=== PATIENT | male | born 1955 | race Caucasian/White ===

== ENCOUNTER → 2016-12-26 | Outpatient (CLI) | payer OTHER ==
[~2016-12-26] MED LIST: BACT800T5 PO; BAYETES; GEMF600T PO; GLIP5 PO; GLIP5TAB8 PO; GLUCTES27 XX; IBUP200T2 PO; KETO60IN6 IM; LISI-360 PO; LISI10TA3 PO; LOPI600T PO; METF1000 PO; METF500 PO; METF500T PO; METH125I2 IM; MOTR200T PO; MULT1TAB85 PO; TAB-TAB PO
[2016-12-26 14:35] LABS: AUTOMATED NEUTROPHIL # 5.5 TH/MM3 (1.8-7.7); BASOPHIL % 0.5 % (0.0-2.0); EOSINOPHIL # 0.1 TH/MM3 (0-0.4); EOSINOPHIL % 0.9 % (0.0-4.0); HEMATOCRIT 41.7 % (39.0-51.0); HEMO FLAGS DIFF FINAL; LYMPH % 28.8 % (9.0-44.0); LYMPHOCYTE # 2.5 TH/MM3 (1.0-4.8); MEAN CORPUSCULAR HEMOGLOBIN 28.4 PG (27.0-34.0); MEAN CORPUSCULAR HGB CONC 33.8 % (32.0-36.0); MONO % 7.4 % (0.0-8.0); NEUT % 62.4 % (16.0-70.0); PLATELET COUNT 262 TH/MM3 (150-450); RED BLOOD COUNT 4.96 MIL/MM3 (4.50-5.90); RED CELL DISTRIBUTION WIDTH 14.1 % (11.6-17.2); WHITE BLOOD COUNT 8.8 TH/MM3 (4.0-11.0)
[2016-12-26 14:59] LABS: ALT (GPT) 22 U/L (12-78); ANION GAP 7 MEQ/L (5-15); AST (GOT) 9 U/L (15-37); BICARBONATE 26.8 MEQ/L (21.0-32.0); BLOOD UREA NITROGEN 14 MG/DL (7-18); CHLORIDE 101 MEQ/L (98-107); GLOMERULAR FILTRATION RATE 78 ML/MIN (>89); GLUCOSE,FASTING 167 MG/DL (74-99); POTASSIUM 4.5 MEQ/L (3.5-5.1); SODIUM (NA) 135 MEQ/L (136-145)
[2016-12-26 15:10] LABS: ALKALINE PHOSPHATASE 90 U/L (45-117); TOTAL BILIRUBIN ADULT 0.2 MG/DL (0.2-1.0)
[2016-12-26 16:53] LABS: HEMOGLOBIN A1b 2.7 %; HEMOGLOBIN Ao 79.9 %; HEMOGLOBIN P3 4.9 %
== END ==
LOC: CLAB 14:05
PROVIDERS: ATTEND Family Medicine
DX: E11.9 Type 2 diabetes mellitus without complications (principal); E78.5 Hyperlipidemia, unspecified; I10 Essential (primary) hypertension; Z72.0 Tobacco use
CPT/HCPCS: 36415; 80053; 83036; 84443; 85025

== ENCOUNTER → 2017-04-21 | Outpatient (CLI) | payer OTHER ==
[~2017-04-21] MED LIST changes: -GLIP5 PO; -GLUCTES27 XX; -KETO60IN6 IM; -LISI-360 PO; -LOPI600T PO; -METF500 PO; -METH125I2 IM; -MOTR200T PO; -TAB-TAB PO
[2017-04-21 16:42] LABS: HDL CHOLESTEROL 38.4 MG/DL (40.0-60.0)
== END ==
LOC: CLAB 15:54
PROVIDERS: ATTEND Family Medicine
DX: E78.5 Hyperlipidemia, unspecified (principal)
CPT/HCPCS: 36415; 80061

== ENCOUNTER → 2017-04-27 | Outpatient (CLI) | payer OTHER ==
[2017-04-27 16:22] LABS: HEMOGLOBIN A1b 2.8 %; HEMOGLOBIN Ao 79.4 %; HEMOGLOBIN LA1C 3.2 %; HEMOGLOBIN P3 4.8 %
== END ==
LOC: CLAB 15:01
PROVIDERS: ATTEND Family Medicine
DX: E11.9 Type 2 diabetes mellitus without complications (principal)
CPT/HCPCS: 36415; 83036

== ENCOUNTER 2018-11-11 02:20 | Observation (INO) ==
[2018-11-11 04:47] LABS: Baso % (Auto) 0.5 % (0.0-2.0); Eos # (Auto) 0.1 th/mm3 (0.0-0.4); Eos % (Auto) 0.9 % (0.0-4.0); Hematocrit 37.6 % (39.0-51.0); Hemoglobin 11.9 gm/dL (13.0-17.0); Lymph # (Auto) 2.1 th/mm3 (1.0-4.8); Mean Corpuscular HGB Conc 31.7 % (32.0-36.0); Mean Corpuscular Hemoglobin 25.3 pg (27.0-34.0); Mean Corpuscular Volume 79.8 fL (80.0-100.0); Mean Platelet Volume 7.8 fL (7.0-11.0); Mono # (Auto) 0.9 th/mm3 (0.0-0.9); Neut # (Auto) 6.9 th/mm3 (1.8-7.7); Neut % (Auto) 68.6 % (16.0-70.0); Platelet Count 367 th/mm3 (150-450); Red Cell Distribution Width 16.9 % (11.6-17.2); White Blood Count 10.1 th/mm3 (4.0-11.0)
[2018-11-11 04:53] LABS: Alanine Aminotransferase 26 U/L (12-78); Albumin 3.8 g/dL (3.4-5.0); Anion Gap 10 meq/L (5-15); Aspartate Aminotransferase 15 U/L (15-37); Blood Urea Nitrogen 9 mg/dL (7-18); Calcium 8.7 mg/dL (8.5-10.1); Carbon Dioxide 25.4 meq/L (21.0-32.0); Chloride 105 meq/L (98-107); Glomerular Filtration Rate Greater Than 89 mL/min (>89); Glucose,Random 192 mg/dL (74-106); Sodium 140 meq/L (136-145)
[2018-11-11 04:57] LABS: Alkaline Phosphatase 121 U/L (45-117); Total Protein 7.4 g/dL (6.4-8.2); Troponin I 0.03 ng/mL (0.02-0.05)
--- NOTE | 2018-11-11 05:17 | ED ---
HPI General Chief Complaint: Shortness of Breath/Dyspnea Stated Complaint: SOB Time Seen by Provider: 11/11/18 03:55 Source: patient Mode of arrival: EMS Limitations: no limitations History of Present Illness 62-year-old male came to the emergency room with sudden onset shortness of breath. Patient is homeless and says that the shortness of breath started about 5-6 hours back. He has been coughing as well. No fever or chills. Patient was tachycardic and tachypneic upon arrival. No previous history of PE or DVT. Patient was also complaining of some left-sided chest pain with no radiation. Currently the pain is gone. He describes this as a dull ache. No aggravating or relieving symptoms identified. Patient has history of diabetes and hypertension. He ran out of his blood pressure medication but has been taking his diabetes meds as per him. Patient recently became homeless. Related Data Home Medications Medication Instructions Recorded Confirmed glipizide 5 mg PO PRN 11/11/18 11/11/18 Previous Rx's Medication Instructions Recorded aspirin 81 mg PO DAILY #30 tab 11/14/18 carvedilol [Coreg] 3.125 mg PO BID #60 tab 11/14/18 furosemide 40 mg PO DAILY #30 tab 11/14/18 lisinopril 10 mg PO DAILY #30 tab 11/14/18 metformin 1,000 mg PO AC #30 tab 11/14/18 Allergies Allergy/AdvReac Type Severity Reaction Status Date / Time penicillin G Allergy Severe Anaphylaxis Verified 11/11/18 07:42 Review of Systems ROS: all other systems reviewed are negative FOR[facility]LY [facility] Medical History Medical History PNA (pneumonia) (Acute) Diabetes (Chronic) HTN (hypertension) (Chronic) Hyperlipidemia (Chronic) Social History Social History Substance History: Active Abuse Second Hand Smoke Exposure: Yes Smoking Status: Current every day smoker Tobacco Type: Cigarettes How Often Do You Have a Drink Containing Alcohol: Never Recent Travel in [facility] within the Last 8 Weeks: No Recent Out of Country Travel within the Last 8 Weeks: No Immunization History Tetanus Immunization: >5 Years Exam Narrative Exam Narrative: GENERAL: Awake, alert, moderate distress SKIN: Focused skin assessment warm/dry. HEAD: Atraumatic. Normocephalic. EYES: Pupils equal and round. No scleral icterus. No injection or drainage. ENT: No nasal bleeding or discharge. Mucous membranes pink and moist. NECK: Trachea midline. No JVD. CARDIOVASCULAR: Regular rate and rhythm. No murmur appreciated. RESPIRATORY: No accessory muscle use. Clear to auscultation. Breath sounds equal bilaterally. GASTROINTESTINAL: Abdomen soft, non-tender, nondistended. Hepatic and splenic margins not palpable. MUSCULOSKELETAL: No obvious deformities. No clubbing. No cyanosis. No edema. NEUROLOGICAL: Awake and alert. No obvious cranial nerve deficits. Motor grossly within normal limits. Normal speech. PSYCHIATRIC: Appropriate mood and affect; insight and judgment normal. Course Consultations Consultation #1: jeannette hospitalist agree to admit Initial Documented Vital Signs Temperature 98.1 F 11/11/18 02:27 Pulse Rate 110 H 11/11/18 02:27 Respiratory Rate 30 H 11/11/18 02:27 Blood Pressure 148/74 H 11/11/18 02:27 Pulse Oximetry 96 11/11/18 02:27 Last Documented Vital Signs Temperature 97.8 F 11/14/18 07:27 Pulse Rate 79 11/14/18 08:20 Respiratory Rate 16 11/14/18 08:20 Blood Pressure 102/61 11/14/18 07:27 Pulse Oximetry 98 11/14/18 07:27 Critical Care Time Critical Care Time: Yes Total Critical Care Time: 30 Attestation: Aggregate critical care time was 30 minutes. Time to perform other separately billable procedures was not included in the critical care time. My time did not include minutes spent treating any other patients simultaneously or on activities that did not directly contribute to the patient's treatment. The services I provided to this patient were to treat and/or prevent clinically significant deterioration that could result in: ACS, heparin bolus and drip I provided critical care services requiring my management, as noted below: Chart data review, documentation time, medication orders and management, vital sign assessments/reviewing monitor data, ordering and reviewing lab tests, ordering and interpreting/reviewing x-rays and diagnostic studies, care of the patient and discussion of the patient with the admitting physicians. Medical Decision Making MDM Narrative Medical decision making narrative: 5:15 AM blood test results are back and BNP is slightly elevated. Patient is moderately hyperglycemic. Rest of his blood test results show anemia but not significant enough requiring blood transfusion. Patient is not on any blood thinners. I have ordered 40 mg of IV Lasix. Chest x-ray looks to have some increased fluid markings. I would admit him primarily to rule out ACS. Awaiting for the hospitalist to call back. 7:38 AM the nurse just brought to me the second EKG which shows significant T wave inversion changes in the lateral leads as well as inferior leads. This is quite concerning given his chief complain. The repeat troponin is pending. However I have started him on heparin bolus and drip and would like to medically admit him at this point. Awaiting for the hospitalist call back. Medical Screen Exam Complete: Yes Emergency Medical Condition: Yes Lab Data Lab results reviewed: Yes I reviewed the patient's lab results. Result diagrams: 11/14/18 06:47 11/14/18 06:47 Lab Results 11/11/18 11/11/18 11/11/18 Range/Units 04:15 04:15 04:15 WBC 10.1 (4.0-11.0) th/mm3 RBC 4.70 (4.50-5.90) mil/mm3 Hgb 11.9 L (13.0-17.0) gm/dL Hct 37.6 L (39.0-51.0) % MCV 79.8 L (80.0-100.0) fL MCH 25.3 L (27.0-34.0) pg MCHC 31.7 L (32.0-36.0) % RDW 16.9 (11.6-17.2) % Plt Count 367 (150-450) th/mm3 MPV 7.8 (7.0-11.0) fL Neut % (Auto) 68.6 (16.0-70.0) % Lymph % (Auto) 21.0 (9.0-44.0) % [place] % (Auto) 9.0 H (0.0-8.0) % Eos % (Auto) 0.9 (0.0-4.0) % Baso % (Auto) 0.5 (0.0-2.0) % Neut # (Auto) 6.9 (1.8-7.7) th/mm3 Lymph # (Auto) 2.1 (1.0-4.8) th/mm3 [place] # (Auto) 0.9 (0.0-0.9) th/mm3 Eos # (Auto) 0.1 (0.0-0.4) th/mm3 Baso # (Auto) 0.0 (0.0-0.2) th/mm3 WBC Differential . Differential Comment Auto diff final PT (9.8-11.6) sec INR Ratio APTT (23.4-31.7) sec D-Dimer Quant (PE/DVT) 0.48 (0.00-0.50) mg/L FEU Sodium 140 (136-145) meq/L Potassium 4.0 (3.5-5.1) meq/L Chloride 105 (98-107) meq/L Carbon Dioxide 25.4 (21.0-32.0) meq/L Anion Gap 10 (5-15) meq/L BUN 9 (7-18) mg/dL Creatinine 0.78 (0.60-1.30) mg/dL Estimated GFR Greater than 89 (>89) mL/min POC Glucose (68-110) mg/dl Random Glucose 192 H (74-106) mg/dL Hemoglobin A1c (4.3-6.0) % Calcium 8.7 (8.5-10.1) mg/dL Magnesium (1.5-2.5) mg/dL Total Bilirubin 0.3 (0.2-1.0) mg/dL AST 15 (15-37) U/L ALT 26 (12-78) U/L Alkaline Phosphatase 121 H (45-117) U/L Total Creatine Kinase (39-308) U/L Troponin I 0.03 (0.02-0.05) ng/mL B-Natriuretic Peptide (0-100) pg/mL Total Protein 7.4 (6.4-8.2) g/dL Albumin 3.8 (3.4-5.0) g/dL Triglycerides (42-150) mg/dL Cholesterol (120-200) mg/dL LDL Cholesterol, Calc (0-99) mg/dL HDL Cholesterol (40.0-60.0) mg/dL Cholesterol/HDL Ratio Ratio TSH (0.358-3.740) uIU/mL 11/11/18 11/11/18 11/11/18 Range/Units 04:15 04:15 04:15 WBC (4.0-11.0) th/mm3 RBC (4.50-5.90) mil/mm3 Hgb (13.0-17.0) gm/dL Hct (39.0-51.0) % MCV (80.0-100.0) fL MCH (27.0-34.0) pg MCHC (32.0-36.0) % RDW (11.6-17.2) % Plt Count (150-450) th/mm3 MPV (7.0-11.0) fL Neut % (Auto) (16.0-70.0) % Lymph % (Auto) (9.0-44.0) % [place] % (Auto) (0.0-8.0) % Eos % (Auto) (0.0-4.0) % Baso % (Auto) (0.0-2.0) % Neut # (Auto) (1.8-7.7) th/mm3 Lymph # (Auto) (1.0-4.8) th/mm3 [place] # (Auto) (0.0-0.9) th/mm3 Eos # (Auto) (0.0-0.4) th/mm3 Baso # (Auto) (0.0-0.2) th/mm3 WBC Differential Differential Comment PT 10.7 (9.8-11.6) sec INR 1.1 Ratio APTT 28.2 (23.4-31.7) sec D-Dimer Quant (PE/DVT) (0.00-0.50) mg/L FEU Sodium (136-145) meq/L Potassium (3.5-5.1) meq/L Chloride (98-107) meq/L Carbon Dioxide (21.0-32.0) meq/L Anion Gap (5-15) meq/L BUN (7-18) mg/dL Creatinine (0.60-1.30) mg/dL Estimated GFR (>89) mL/min POC Glucose (68-110) mg/dl Random Glucose (74-106) mg/dL Hemoglobin A1c 8.0 H (4.3-6.0) % Calcium (8.5-10.1) mg/dL Magnesium (1.5-2.5) mg/dL Total Bilirubin (0.2-1.0) mg/dL AST (15-37) U/L ALT (12-78) U/L Alkaline Phosphatase (45-117) U/L Total Creatine Kinase (39-308) U/L Troponin I (0.02-0.05) ng/mL B-Natriuretic Peptide 218 H (0-100) pg/mL Total Protein (6.4-8.2) g/dL Albumin (3.4-5.0) g/dL Triglycerides (42-150) mg/dL Cholesterol (120-200) mg/dL LDL Cholesterol, Calc (0-99) mg/dL HDL Cholesterol (40.0-60.0) mg/dL Cholesterol/HDL Ratio Ratio TSH (0.358-3.740) uIU/mL 11/11/18 11/11/18 11/11/18 Range/Units 07:30 09:27 09:27 WBC (4.0-11.0) th/mm3 RBC (4.50-5.90) mil/mm3 Hgb (13.0-17.0) gm/dL Hct (39.0-51.0) % MCV (80.0-100.0) fL MCH (27.0-34.0) pg MCHC (32.0-36.0) % RDW (11.6-17.2) % Plt Count (150-450) th/mm3 MPV (7.0-11.0) fL Neut % (Auto) (16.0-70.0) % Lymph % (Auto) (9.0-44.0) % [place] % (Auto) (0.0-8.0) % Eos % (Auto) (0.0-4.0) % Baso % (Auto) (0.0-2.0) % Neut # (Auto) (1.8-7.7) th/mm3 Lymph # (Auto) (1.0-4.8) th/mm3 [place] # (Auto) (0.0-0.9) th/mm3 Eos # (Auto) (0.0-0.4) th/mm3 Baso # (Auto) (0.0-0.2) th/mm3 WBC Differential Differential Comment PT (9.8-11.6) sec INR Ratio APTT (23.4-31.7) sec D-Dimer Quant (PE/DVT) (0.00-0.50) mg/L FEU Sodium (136-145) meq/L Potassium (3.5-5.1) meq/L Chloride (98-107) meq/L Carbon Dioxide (21.0-32.0) meq/L Anion Gap (5-15) meq/L BUN (7-18) mg/dL Creatinine (0.60-1.30) mg/dL Estimated GFR (>89) mL/min POC Glucose (68-110) mg/dl Random Glucose (74-106) mg/dL Hemoglobin A1c (4.3-6.0) % Calcium (8.5-10.1) mg/dL Magnesium (1.5-2.5) mg/dL Total Bilirubin (0.2-1.0) mg/dL AST (15-37) U/L ALT (12-78) U/L Alkaline Phosphatase (45-117) U/L Total Creatine Kinase 76 72 (39-308) U/L Troponin I 0.02 0.02 (0.02-0.05) ng/mL B-Natriuretic Peptide (0-100) pg/mL Total Protein (6.4-8.2) g/dL Albumin (3.4-5.0) g/dL Triglycerides 59 (42-150) mg/dL Cholesterol 217 H (120-200) mg/dL LDL Cholesterol, Calc 161 H (0-99) mg/dL HDL Cholesterol 44.6 (40.0-60.0) mg/dL Cholesterol/HDL Ratio 4.86 Ratio TSH 0.963 (0.358-3.740) uIU/mL 11/11/18 11/11/18 11/11/18 Range/Units 12:24 13:25 17:10 WBC (4.0-11.0) th/mm3 RBC (4.50-5.90) mil/mm3 Hgb (13.0-17.0) gm/dL Hct (39.0-51.0) % MCV (80.0-100.0) fL MCH (27.0-34.0) pg MCHC (32.0-36.0) % RDW (11.6-17.2) % Plt Count (150-450) th/mm3 MPV (7.0-11.0) fL Neut % (Auto) (16.0-70.0) % Lymph % (Auto) (9.0-44.0) % [place] % (Auto) (0.0-8.0) % Eos % (Auto) (0.0-4.0) % Baso % (Auto) (0.0-2.0) % Neut # (Auto) (1.8-7.7) th/mm3 Lymph # (Auto) (1.0-4.8) th/mm3 [place] # (Auto) (0.0-0.9) th/mm3 Eos # (Auto) (0.0-0.4) th/mm3 Baso # (Auto) (0.0-0.2) th/mm3 WBC Differential Differential Comment PT (9.8-11.6) sec INR Ratio APTT 44.3 H D (23.4-31.7) sec D-Dimer Quant (PE/DVT) (0.00-0.50) mg/L FEU Sodium (136-145) meq/L Potassium (3.5-5.1) meq/L Chloride (98-107) meq/L Carbon Dioxide (21.0-32.0) meq/L Anion Gap (5-15) meq/L BUN (7-18) mg/dL Creatinine (0.60-1.30) mg/dL Estimated GFR (>89) mL/min POC Glucose 396 H 129 H (68-110) mg/dl Random Glucose (74-106) mg/dL Hemoglobin A1c (4.3-6.0) % Calcium (8.5-10.1) mg/dL Magnesium (1.5-2.5) mg/dL Total Bilirubin (0.2-1.0) mg/dL AST (15-37) U/L ALT (12-78) U/L Alkaline Phosphatase (45-117) U/L Total Creatine Kinase (39-308) U/L Troponin I (0.02-0.05) ng/mL B-Natriuretic Peptide (0-100) pg/mL Total Protein (6.4-8.2) g/dL Albumin (3.4-5.0) g/dL Triglycerides (42-150) mg/dL Cholesterol (120-200) mg/dL LDL Cholesterol, Calc (0-99) mg/dL HDL Cholesterol (40.0-60.0) mg/dL Cholesterol/HDL Ratio Ratio TSH (0.358-3.740) uIU/mL 11/11/18 11/11/18 11/12/18 Range/Units 20:10 23:42 02:05 WBC (4.0-11.0) th/mm3 RBC (4.50-5.90) mil/mm3 Hgb (13.0-17.0) gm/dL Hct (39.0-51.0) % MCV (80.0-100.0) fL MCH (27.0-34.0) pg MCHC (32.0-36.0) % RDW (11.6-17.2) % Plt Count (150-450) th/mm3 MPV (7.0-11.0) fL Neut % (Auto) (16.0-70.0) % Lymph % (Auto) (9.0-44.0) % [place] % (Auto) (0.0-8.0) % Eos % (Auto) (0.0-4.0) % Baso % (Auto) (0.0-2.0) % Neut # (Auto) (1.8-7.7) th/mm3 Lymph # (Auto) (1.0-4.8) th/mm3 [place] # (Auto) (0.0-0.9) th/mm3 Eos # (Auto) (0.0-0.4) th/mm3 Baso # (Auto) (0.0-0.2) th/mm3 WBC Differential Differential Comment PT (9.8-11.6) sec INR Ratio APTT 26.4 D 47.5 H D (23.4-31.7) sec D-Dimer Quant (PE/DVT) (0.00-0.50) mg/L FEU Sodium (136-145) meq/L Potassium (3.5-5.1) meq/L Chloride (98-107) meq/L Carbon Dioxide (21.0-32.0) meq/L Anion Gap (5-15) meq/L BUN (7-18) mg/dL Creatinine (0.60-1.30) mg/dL Estimated GFR (>89) mL/min POC Glucose 234 H (68-110) mg/dl Random Glucose (74-106) mg/dL Hemoglobin A1c (4.3-6.0) % Calcium (8.5-10.1) mg/dL Magnesium (1.5-2.5) mg/dL Total Bilirubin (0.2-1.0) mg/dL AST (15-37) U/L ALT (12-78) U/L Alkaline Phosphatase (45-117) U/L Total Creatine Kinase (39-308) U/L Troponin I (0.02-0.05) ng/mL B-Natriuretic Peptide (0-100) pg/mL Total Protein (6.4-8.2) g/dL Albumin (3.4-5.0) g/dL Triglycerides (42-150) mg/dL Cholesterol (120-200) mg/dL LDL Cholesterol, Calc (0-99) mg/dL HDL Cholesterol (40.0-60.0) mg/dL Cholesterol/HDL Ratio Ratio TSH (0.358-3.740) uIU/mL 11/12/18 11/12/18 11/12/18 Range/Units 06:50 08:35 08:50 WBC 10.3 (4.0-11.0) th/mm3 RBC 4.00 L (4.50-5.90) mil/mm3 Hgb 10.4 L (13.0-17.0) gm/dL Hct 31.1 L (39.0-51.0) % MCV 77.7 L (80.0-100.0) fL MCH 25.9 L (27.0-34.0) pg MCHC 33.4 (32.0-36.0) % RDW 16.6 (11.6-17.2) % Plt Count 320 (150-450) th/mm3 MPV 7.9 (7.0-11.0) fL Neut % (Auto) (16.0-70.0) % Lymph % (Auto) (9.0-44.0) % [place] % (Auto) (0.0-8.0) % Eos % (Auto) (0.0-4.0) % Baso % (Auto) (0.0-2.0) % Neut # (Auto) (1.8-7.7) th/mm3 Lymph # (Auto) (1.0-4.8) th/mm3 [place] # (Auto) (0.0-0.9) th/mm3 Eos # (Auto) (0.0-0.4) th/mm3 Baso # (Auto) (0.0-0.2) th/mm3 WBC Differential Differential Comment PT (9.8-11.6) sec INR Ratio APTT 47.2 H (23.4-31.7) sec D-Dimer Quant (PE/DVT) (0.00-0.50) mg/L FEU Sodium (136-145) meq/L Potassium (3.5-5.1) meq/L Chloride (98-107) meq/L Carbon Dioxide (21.0-32.0) meq/L Anion Gap (5-15) meq/L BUN (7-18) mg/dL Creatinine (0.60-1.30) mg/dL Estimated GFR (>89) mL/min POC Glucose 167 H (68-110) mg/dl Random Glucose (74-106) mg/dL Hemoglobin A1c (4.3-6.0) % Calcium (8.5-10.1) mg/dL Magnesium (1.5-2.5) mg/dL Total Bilirubin (0.2-1.0) mg/dL AST (15-37) U/L ALT (12-78) U/L Alkaline Phosphatase (45-117) U/L Total Creatine Kinase (39-308) U/L Troponin I (0.02-0.05) ng/mL B-Natriuretic Peptide (0-100) pg/mL Total Protein (6.4-8.2) g/dL Albumin (3.4-5.0) g/dL Triglycerides (42-150) mg/dL Cholesterol (120-200) mg/dL LDL Cholesterol, Calc (0-99) mg/dL HDL Cholesterol (40.0-60.0) mg/dL Cholesterol/HDL Ratio Ratio TSH (0.358-3.740) uIU/mL 11/12/18 11/12/18 11/12/18 Range/Units 13:24 17:38 21:24 WBC (4.0-11.0) th/mm3 RBC (4.50-5.90) mil/mm3 Hgb (13.0-17.0) gm/dL Hct (39.0-51.0) % MCV (80.0-100.0) fL MCH (27.0-34.0) pg MCHC (32.0-36.0) % RDW (11.6-17.2) % Plt Count (150-450) th/mm3 MPV (7.0-11.0) fL Neut % (Auto) (16.0-70.0) % Lymph % (Auto) (9.0-44.0) % [place] % (Auto) (0.0-8.0) % Eos % (Auto) (0.0-4.0) % Baso % (Auto) (0.0-2.0) % Neut # (Auto) (1.8-7.7) th/mm3 Lymph # (Auto) (1.0-4.8) th/mm3 [place] # (Auto) (0.0-0.9) th/mm3 Eos # (Auto) (0.0-0.4) th/mm3 Baso # (Auto) (0.0-0.2) th/mm3 WBC Differential Differential Comment PT (9.8-11.6) sec INR Ratio APTT (23.4-31.7) sec D-Dimer Quant (PE/DVT) (0.00-0.50) mg/L FEU Sodium (136-145) meq/L Potassium (3.5-5.1) meq/L Chloride (98-107) meq/L Carbon Dioxide (21.0-32.0) meq/L Anion Gap (5-15) meq/L BUN (7-18) mg/dL Creatinine (0.60-1.30) mg/dL Estimated GFR (>89) mL/min POC Glucose 184 H 170 H 159 H (68-110) mg/dl Random Glucose (74-106) mg/dL Hemoglobin A1c (4.3-6.0) % Calcium (8.5-10.1) mg/dL Magnesium (1.5-2.5) mg/dL Total Bilirubin (0.2-1.0) mg/dL AST (15-37) U/L ALT (12-78) U/L Alkaline Phosphatase (45-117) U/L Total Creatine Kinase (39-308) U/L Troponin I (0.02-0.05) ng/mL B-Natriuretic Peptide (0-100) pg/mL Total Protein (6.4-8.2) g/dL Albumin (3.4-5.0) g/dL Triglycerides (42-150) mg/dL Cholesterol (120-200) mg/dL LDL Cholesterol, Calc (0-99) mg/dL HDL Cholesterol (40.0-60.0) mg/dL Cholesterol/HDL Ratio Ratio TSH (0.358-3.740) uIU/mL 11/13/18 11/13/18 11/13/18 Range/Units 03:06 08:36 13:05 WBC 6.6 (4.0-11.0) th/mm3 RBC 4.36 L (4.50-5.90) mil/mm3 Hgb 11.2 L (13.0-17.0) gm/dL Hct 34.0 L (39.0-51.0) % MCV 77.9 L (80.0-100.0) fL MCH 25.6 L (27.0-34.0) pg MCHC 32.9 (32.0-36.0) % RDW 16.6 (11.6-17.2) % Plt Count 340 (150-450) th/mm3 MPV 7.6 (7.0-11.0) fL Neut % (Auto) (16.0-70.0) % Lymph % (Auto) (9.0-44.0) % [place] % (Auto) (0.0-8.0) % Eos % (Auto) (0.0-4.0) % Baso % (Auto) (0.0-2.0) % Neut # (Auto) (1.8-7.7) th/mm3 Lymph # (Auto) (1.0-4.8) th/mm3 [place] # (Auto) (0.0-0.9) th/mm3 Eos # (Auto) (0.0-0.4) th/mm3 Baso # (Auto) (0.0-0.2) th/mm3 WBC Differential Differential Comment PT (9.8-11.6) sec INR Ratio APTT (23.4-31.7) sec D-Dimer Quant (PE/DVT) (0.00-0.50) mg/L FEU Sodium (136-145) meq/L Potassium (3.5-5.1) meq/L Chloride (98-107) meq/L Carbon Dioxide (21.0-32.0) meq/L Anion Gap (5-15) meq/L BUN (7-18) mg/dL Creatinine (0.60-1.30) mg/dL Estimated GFR (>89) mL/min POC Glucose 192 H 300 H (68-110) mg/dl Random Glucose (74-106) mg/dL Hemoglobin A1c (4.3-6.0) % Calcium (8.5-10.1) mg/dL Magnesium (1.5-2.5) mg/dL Total Bilirubin (0.2-1.0) mg/dL AST (15-37) U/L ALT (12-78) U/L Alkaline Phosphatase (45-117) U/L Total Creatine Kinase (39-308) U/L Troponin I (0.02-0.05) ng/mL B-Natriuretic Peptide (0-100) pg/mL Total Protein (6.4-8.2) g/dL Albumin (3.4-5.0) g/dL Triglycerides (42-150) mg/dL Cholesterol (120-200) mg/dL LDL Cholesterol, Calc (0-99) mg/dL HDL Cholesterol (40.0-60.0) mg/dL Cholesterol/HDL Ratio Ratio TSH (0.358-3.740) uIU/mL 11/13/18 11/13/18 11/14/18 Range/Units 17:10 20:55 06:47 WBC 7.0 (4.0-11.0) th/mm3 RBC 4.50 (4.50-5.90) mil/mm3 Hgb 11.4 L (13.0-17.0) gm/dL Hct 35.1 L (39.0-51.0) % MCV 78.0 L (80.0-100.0) fL MCH 25.4 L (27.0-34.0) pg MCHC 32.6 (32.0-36.0) % RDW 16.4 (11.6-17.2) % Plt Count 341 (150-450) th/mm3 MPV 7.5 (7.0-11.0) fL Neut % (Auto) (16.0-70.0) % Lymph % (Auto) (9.0-44.0) % [place] % (Auto) (0.0-8.0) % Eos % (Auto) (0.0-4.0) % Baso % (Auto) (0.0-2.0) % Neut # (Auto) (1.8-7.7) th/mm3 Lymph # (Auto) (1.0-4.8) th/mm3 [place] # (Auto) (0.0-0.9) th/mm3 Eos # (Auto) (0.0-0.4) th/mm3 Baso # (Auto) (0.0-0.2) th/mm3 WBC Differential Differential Comment PT (9.8-11.6) sec INR Ratio APTT (23.4-31.7) sec D-Dimer Quant (PE/DVT) (0.00-0.50) mg/L FEU Sodium (136-145) meq/L Potassium (3.5-5.1) meq/L Chloride (98-107) meq/L Carbon Dioxide (21.0-32.0) meq/L Anion Gap (5-15) meq/L BUN (7-18) mg/dL Creatinine (0.60-1.30) mg/dL Estimated GFR (>89) mL/min POC Glucose 162 H 256 H (68-110) mg/dl Random Glucose (74-106) mg/dL Hemoglobin A1c (4.3-6.0) % Calcium (8.5-10.1) mg/dL Magnesium (1.5-2.5) mg/dL Total Bilirubin (0.2-1.0) mg/dL AST (15-37) U/L ALT (12-78) U/L Alkaline Phosphatase (45-117) U/L Total Creatine Kinase (39-308) U/L Troponin I (0.02-0.05) ng/mL B-Natriuretic Peptide (0-100) pg/mL Total Protein (6.4-8.2) g/dL Albumin (3.4-5.0) g/dL Triglycerides (42-150) mg/dL Cholesterol (120-200) mg/dL LDL Cholesterol, Calc (0-99) mg/dL HDL Cholesterol (40.0-60.0) mg/dL Cholesterol/HDL Ratio Ratio TSH (0.358-3.740) uIU/mL 11/14/18 11/14/18 Range/Units 06:47 09:03 WBC (4.0-11.0) th/mm3 RBC (4.50-5.90) mil/mm3 Hgb (13.0-17.0) gm/dL Hct (39.0-51.0) % MCV (80.0-100.0) fL MCH (27.0-34.0) pg MCHC (32.0-36.0) % RDW (11.6-17.2) % Plt Count (150-450) th/mm3 MPV (7.0-11.0) fL Neut % (Auto) (16.0-70.0) % Lymph % (Auto) (9.0-44.0) % [place] % (Auto) (0.0-8.0) % Eos % (Auto) (0.0-4.0) % Baso % (Auto) (0.0-2.0) % Neut # (Auto) (1.8-7.7) th/mm3 Lymph # (Auto) (1.0-4.8) th/mm3 [place] # (Auto) (0.0-0.9) th/mm3 Eos # (Auto) (0.0-0.4) th/mm3 Baso # (Auto) (0.0-0.2) th/mm3 WBC Differential Differential Comment PT (9.8-11.6) sec INR Ratio APTT (23.4-31.7) sec D-Dimer Quant (PE/DVT) (0.00-0.50) mg/L FEU Sodium 135 L (136-145) meq/L Potassium 4.2 (3.5-5.1) meq/L Chloride 101 (98-107) meq/L Carbon Dioxide 28.5 (21.0-32.0) meq/L Anion Gap 6 (5-15) meq/L BUN 23 H (7-18) mg/dL Creatinine 0.88 (0.60-1.30) mg/dL Estimated GFR 88 L (>89) mL/min POC Glucose 158 H (68-110) mg/dl Random Glucose 139 H (74-106) mg/dL Hemoglobin A1c (4.3-6.0) % Calcium 8.7 (8.5-10.1) mg/dL Magnesium 2.3 (1.5-2.5) mg/dL Total Bilirubin (0.2-1.0) mg/dL AST (15-37) U/L ALT (12-78) U/L Alkaline Phosphatase (45-117) U/L Total Creatine Kinase (39-308) U/L Troponin I (0.02-0.05) ng/mL B-Natriuretic Peptide (0-100) pg/mL Total Protein (6.4-8.2) g/dL Albumin (3.4-5.0) g/dL Triglycerides (42-150) mg/dL Cholesterol (120-200) mg/dL LDL Cholesterol, Calc (0-99) mg/dL HDL Cholesterol (40.0-60.0) mg/dL Cholesterol/HDL Ratio Ratio TSH (0.358-3.740) uIU/mL Imaging Data Attestation: I personally reviewed and interpreted this imaging study as follows : Radiologist's impression: Chest X-Ray 11/11/18 03:58 CONCLUSION: No acute cardiopulmonary disease. Myocardial Perfusion Scan Nuc Med 11/13/18 00:00 CONCLUSION: 1. 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 ECG Data Attestation: I personally reviewed and interpreted this ECG as follows: Interpretation: Twelve-lead EKG was reviewed by me. Normal sinus rhythm, PVCs, right bundle branch block, normal axis, tachycardia. Heart rate of 106 bpm. Discharge Plan Discharge Disposition Patient Disposition: ED Admit(ED Internal Use Only) Discharge Condition Condition: Stable Discharge Order Discharge Orders: Discharge Order (Routine); Ordered 11/14/18 Ordered By: Edin Tolentino ED Use Only Admit Order (Routine); Ordered 11/11/18 Ordered By: Juan Holman Discharge Details Anticipated Discharge Date: 11/14/18 Discharge Comment: OK to discharge once patient has ability to fill scripts Diagnosis: Chest pain Physicians Team ED Provider: Juan Holman Primary Care Provider: Primary Care Azalia Hector Attending Provider: Edin Tolentino Other Providers: Bennie Nicholson Status ED Status: Left Department Discharge Information Discharge Date/Time: 11/11/18 09:09
--- NOTE | 2018-11-11 05:39 | XR ---
EXAM DATE: 11/11/2018 4:50 AM EST AGE/SEX: 62 years / Male INDICATIONS: Shortness of breath with chest pain. CLINICAL DATA: This is the patient's initial encounter. Patient reports that signs and symptoms have been present for 1 day and indicates a pain score of 6/10. MEDICAL/SURGICAL HISTORY: Hiatal hernia. Diabetes mellitus type II. Appendectomy. COMPARISON: None. FINDINGS: A single AP view of the chest demonstrates the lungs to be symmetrically aerated without evidence of mass, infiltrate or effusion. The cardiomediastinal contours are unremarkable. Osseous structures a re intact. CONCLUSION: No acute cardiopulmonary disease. Electronically signed by: Edin Rg MD Board Certified Radiologist 11/11/2018 5:37 AM EST
[2018-11-11] MEDS ORDERED: Heparin 10,000 UNITS/10 ML Vial (for IV use) IV.PUSH STA (07:30)
[2018-11-11] MEDS: Heparin Drip 25,000 UNIT/250 ML BAG IV.CONT PRN (07:45)
[2018-11-11] MEDS ORDERED: Acetaminophen 325 MG Tablet PO PRN (08:00)
[2018-11-11] MEDS ORDERED: Bisacodyl 10 MG Supp RECTAL PRN (08:00)
[2018-11-11 08:12] LABS: Activated Partial Thrombo Time 28.2 sec (23.4-31.7); INR 1.1 Ratio; Prothrombin Time 10.7 sec (9.8-11.6)
[2018-11-11 08:14] LABS: Troponin I 0.02 ng/mL (0.02-0.05)
--- NOTE | 2018-11-11 09:19 | P.HPIM ---
History of Present Illness Primary Care Physician: No Primary Care Physician Chief Complaint: shortness of breath History of Present Illness: 62 yo M with h/o DM type 2, HTN, Hyperlipidemia, who presented to the ER with shortness of breath. Patient is homeless currently , [place] when she started experiencing sudden onset shortness of breath. He tried to lay down but it got worse on laying down , and he would cough a lot,and had lower retrosternal pressure which was non radiating about 7/10. No associated diaphoresis or palpitations. Had some wheezing as well on laying down. He sat up again and breathing somewhat improved , but he still felt like he could not catch his breath. He had an albuterol inhaler which he had got from his friend sometime ago, he inhaled 4 times but it did not help. Patient is not know to have COPD.The symptoms lasted about 20 minutes. Since he was not improving, he called EMS. On arrival EMS put patient on Oxygen, and started breathing treatments, and was brought to ER. On arrival to ER, BP 148/74, HR 110/min, was reported to be tachypneic w RR 30, SATS 96%. Patient received Lasix 40mg, ASA 162mg. Patient reports improvement in shortness of breath after treatment in ER. Troponin negative --0.03,0.02. Initial ECG 02:25am-sinus tach 106, RBBB,occasional PACs, subsequent ECG 07: 23am--NSR 93/min,RBBB w twi inferolateral leads. Patient started on heparin drip at 7:30amdue to changes noted in his second ECG. When I saw patient he reported his shortness of breath/wheezing and the lower chest pressure had significantly improved. ROS--patient notice leg swelling 2 days prior to admission, initially at level of ankle but increased to about mid leg. He has h/o exertional shortness of breath when going upstairs or an incline for the last 1-2 years. Occasional exertional chest pain. Numbness in both his feet. The rest of ROS is negative except as stated above. Smokes 1ppd for more than 40 years, occasionally drinks alcohol. Occasionally uses marijuana, last use probably 4 months ago. Review of Systems Review of Systems: all other systems reviewed are negative [facility] Medical History Medical History PNA (pneumonia) (Acute) Diabetes (Chronic) HTN (hypertension) (Chronic) Hyperlipidemia (Chronic) Social History Social History Substance History: Active Abuse Second Hand Smoke Exposure: Yes Smoking Status: Current every day smoker Tobacco Type: Cigarettes How Often Do You Have a Drink Containing Alcohol: Never Recent Travel in [facility] within the Last 8 Weeks: No Recent Out of Country Travel within the Last 8 Weeks: No Immunization History Tetanus Immunization: >5 Years Medications and Allergies Allergies Allergy/AdvReac Type Severity Reaction Status Date / Time penicillin G Allergy Severe Anaphylaxis Verified 11/11/18 07:42 Home Medications Medication Instructions Recorded Confirmed Type aspirin 81 mg PO DAILY 11/11/18 11/11/18 History glipizide 5 mg PO PRN 11/11/18 11/11/18 History lisinopril 10 mg PO DAILY 11/11/18 11/11/18 History metformin 1,000 mg PO AC 11/11/18 11/11/18 History metformin 1,500 mg PO HS 11/11/18 11/11/18 History Active Medications: Active Medications Acetaminophen (Tylenol) 650 mg PO Q4H PRN PRN Reason: Temp > 100.4 Al Hydroxide/Mg Hydroxide (Milk Of Magnesia Liq) 30 ml PO Q12H PRN PRN Reason: Mild Constipation Bisacodyl (Dulcolax Supp) 10 mg RECTAL DAILY PRN PRN Reason: SEVERE CONSITIPATION Heparin Sodium/Dextrose (Heparin/D5w 25,000 U/250 Ml) 25,000 unit in 250 mls @ 0 mls/hr IV.CONT TITRATE PRN; Protocol PRN Reason: Per Protocol Last Admin: 11/11/18 07:45 Dose: 1,200 units/hr, 12 mls/hr Lactulose (Lactulose Liq) 30 ml PO DAILY PRN PRN Reason: SEVERE CONSITIPATION Ondansetron HCl (Zofran Inj) 4 mg IV.PUSH Q6H PRN PRN Reason: NAUSEA OR VOMITING Senna/Docusate Sodium (Gris-Colace) 1 tab PO BID CHUY Sennosides (Senokot) 17.2 mg PO Q12H PRN PRN Reason: Moderate Constipation Sodium Chloride (Ns Flush) 2 ml IV.FLUSH UNSCH PRN PRN Reason: FLUSH AFTER USING IV ACCESS Sodium Chloride (Ns Flush) 2 ml IV.FLUSH BID CHUY Sodium Chloride (Ns Flush) 2 ml IV.FLUSH PRN PRN PRN Reason: FLUSH AFTER USING IV ACCESS Sodium Chloride (Ns Flush) 2 ml IV.FLUSH BID CHUY Sodium Chloride (Ns Flush) 2 ml IV.FLUSH PRN PRN PRN Reason: FLUSH AFTER USING IV ACCESS Physical Exam Vital signs: Last Vital Signs Temp 98.1 F 11/11/18 02:27 Pulse 97 H 11/11/18 08:28 Resp 18 11/11/18 08:28 BP 143/74 H 11/11/18 08:28 Pulse Ox 99 11/11/18 08:28 Intake & Output 11/09/18 11/10/18 11/11/18 11/12/18 06:59 06:59 06:59 06:59 Weight 68.039 kg Narrative: GENERAL: This is a well-nourished, well-developed patient, in no apparent distress. HEENT:not pale,anicteric,acyanotic, nasal canula in situ. NECK:JVD+ CARDIOVASCULAR: Regular rate and rhythm without murmurs, gallops, or rubs. RESPIRATORY: Clear to auscultation. Breath sounds equal bilaterally. No wheezes , rales, or rhonchi. GASTROINTESTINAL: Abdomen soft, non-tender, nondistended. Normal active bowel sounds MUSCULOSKELETAL: Extremities without clubbing, cyanosis. 2+ pedal edema to mid legs. NEURO: Alert & Oriented x4 to person, place, time, situation. Moves all ext x4 Results Labs CBC & Chem 7: 11/11/18 04:15 11/11/18 04:15 Imaging Impressions Chest X-Ray 11/11/18 03:58 CONCLUSION: No acute cardiopulmonary disease. Caprini VTE Risk Assessment Caprini VTE Risk Assessment: No/Low Risk (score <= 1) Caprini Risk Assessment Model: Point Value = 1 Point Value = 2 Point Value = 3 Point Value = 5 Age 41-60 Minor surgery BMI > 25 kg/m2 Swollen legs Varicose veins or History of unexplained or recurrent spontaneous Oral contraceptives or hormone replacement Sepsis (< 1 month) Serious lung disease, including pneumonia (< 1 month) Abnormal pulmonary function Acute myocardial infarction Congestive heart failure (< 1 month) History of inflammatory bowel disease Medical patient at bed rest Age 61-74 Arthroscopic surgery Major open surgery (> 45 min) Laparoscopic surgery (> 45 min) Malignancy Confined to bed (> 72 hours) Immobilizing plaster cast Central venous access Age >= 75 History of VTE Family history of VTE Factor V Leiden Prothrombin [id number] Lupus anticoagulant Anticardiolipin antibodies Elevated serum homocysteine Heparin-induced thrombocytopenia Other congenital or acquired thrombophilia Stroke (< 1 month) Elective arthroplasty Hip, pelvis, or leg fracture Acute spinal cord injury (< 1 month) Prophylaxis Regimen: Total Risk Factor Score Risk Level Prophylaxis Regimen 0-1 Low Early ambulation 2 Moderate Order ONE of the following: *Sequential Compression Device (SCD) *Heparin 5000 units SQ BID 3-4 Higher Order ONE of the following medications: *Heparin 5000 units SQ TID *Enoxaparin/Lovenox 40 mg SQ daily (WT < 150 kg, CrCl > 30 mL/min) *Enoxaparin/Lovenox 30 mg SQ daily (WT < 150 kg, CrCl > 10-29 mL/min) *Enoxaparin/Lovenox 30 mg SQ BID (WT < 150 kg, CrCl > 30 mL/min) AND/OR *Sequential Compression Device (SCD) 5 or more Highest Order ONE of the following medications: *Heparin 5000 units SQ TID (Preferred with Epidurals) *Enoxaparin/Lovenox 40 mg SQ daily (WT < 150 kg, CrCl > 30 mL/min) *Enoxaparin/Lovenox 30 mg SQ daily (WT < 150 kg, CrCl > 10-29 mL/min) *Enoxaparin/Lovenox 30 mg SQ BID (WT < 150 kg, CrCl > 30 mL/min) AND *Sequential Compression Device (SCD) Assessment and Plan Plan 62 yo m with h/o DM type 2 HTN, Hyperlipidemia presenting with shortness of breath. 1.Shortness of breath, acute onset. Likely new onset Congestive heart failure, non specified type presently. Patient had leg swelling for 2 days prior to arrival, BNP is elevated, clinical symptoms and signs in keeping with volume overload. Obtain 2 D ECHO, check TSH Start on Lasix IV 20mg bid. Strict I/O chart, 2gm sodium diet. 2.Chest pain-subsided. may be secondary to CHF. troponin negative x2, ECG noted to be in RBBB, with twi in inferolateral leads. unclear if this is old or new. check d-dimer. continue heparin drip for now. need to r/o ischemia with nuclear stress test once patient is euvolemic. counseled on smoking cessation. 3. DM type 2 Patient on Metformin 1000 mg in morning and 1500mg pm, Glipizide 5-10mg prn. says his blood glucose is in 130-170 range at home. glucose 190's here, check A1C. Keep on SSI 4.HTN-uncontrolled, systolic BP in the 140's. resume Lisinopril. keep 2gm sodium diet. 5. Hyperlipidemia/hypertriglyceridemia-patient on Gemfibrozil 600mg bid, continue same, check lipid profile. DVT ppx-low risk.
[2018-11-11 10:09] LABS: Troponin I 0.02 ng/mL (0.02-0.05)
[2018-11-11] MEDS: Senna/Docusate Sodium 8.6/50 MG Tablet PO SCH ×2 (10:34→21:30)
[2018-11-11] MEDS: Lisinopril 10 MG Tablet PO SCH (10:34)
[2018-11-11 10:56] LABS: Chol/HDL Ratio 4.86 Ratio; HDL Cholesterol 44.6 mg/dL (40.0-60.0); Thyroid Stimulating Hormone 0.963 uIU/mL (0.358-3.740)
[2018-11-11] MEDS ORDERED: Insulin NovoLOG Aspart Correctional Sugar Inj SQ SCH ×2 (12:00→17:00)
[2018-11-11] MEDS ORDERED: Dextrose 50% in Water 50 ML Vial IV.PUSH PRN (13:53)
[2018-11-11] MEDS: Insulin NovoLOG Aspart Correctional Sugar Inj SQ SCH ×3 (14:14→23:50)
--- NOTE | 2018-11-11 15:02 | ECG ---
Date Performed: 11/11/2018 Time Performed: 02:25:48 PTAGE: 62 years EKG: SINUS TACHYCARDIA WITH OCCASIONAL SUPRAVENTRICULAR PREMATURE COMPLEXES POSSIBLE LEFT ATRIAL ENLARGEMENT BORDERLINE LEFT AXIS DEVIATION RIGHT BUNDLE BRANCH BLOCK CANNOT EXCLUDE INFERIOR WALL AK OF UNDETERMINED AGE ABNORMAL ECG NO PREVIOUS TRACING DOCTOR: Nik Parra Interpretating Date/Time 11/11/2018 14:58:51
--- NOTE | 2018-11-11 15:02 | ECG ---
Date Performed: 11/11/2018 Time Performed: 07:23:10 PTAGE: 62 years EKG: Sinus rhythm RIGHT BUNDLE BRANCH BLOCK CANNOT EXCLUDE INFERIOR WALL PR OF UNDETERMINED AGE NONSPECIFIC T WAVE ANOOP NGE Compared to previous tracing, T wave changes are more prominent anterolaterally. Clinical correla tion is recommended ABNORMAL ECG PREVIOUS TRACING : 11/11/2018 02.25 DOCTOR: Nik Parra Interpretating Date/Time 11/11/2018 14:59:45
--- NOTE | 2018-11-11 15:03 | ECG ---
Date Performed: 11/11/2018 Time Performed: 10:27:30 PTAGE: 62 years EKG: Sinus rhythm RIGHT BUNDLE BRANCH BLOCK CANNOT EXCLUDE INFERIOR WALL IN OF UNDETERMINED AGE NONSPECIFIC T WAVE ANOOP NGE INFEROLATERALLY Since the previous tracing, no significant change noted ABNORMAL ECG PREVIOUS TRACING : 11/11/2018 07.23 DOCTOR: Nik Parra Interpretating Date/Time 11/11/2018 15:00:12
[2018-11-12] MEDS: Heparin Drip 25,000 UNIT/250 ML BAG IV.CONT PRN (01:55)
[2018-11-12 08:14] LABS: Hematocrit 31.1 % (39.0-51.0); Hemoglobin 10.4 gm/dL (13.0-17.0); Mean Corpuscular HGB Conc 33.4 % (32.0-36.0); Mean Corpuscular Hemoglobin 25.9 pg (27.0-34.0); Mean Corpuscular Volume 77.7 fL (80.0-100.0); Mean Platelet Volume 7.9 fL (7.0-11.0); Platelet Count 320 th/mm3 (150-450); Red Cell Distribution Width 16.6 % (11.6-17.2); White Blood Count 10.3 th/mm3 (4.0-11.0)
[2018-11-12] MEDS: Lisinopril 10 MG Tablet PO SCH (08:52)
[2018-11-12] MEDS: Senna/Docusate Sodium 8.6/50 MG Tablet PO SCH ×2 (08:52→21:27)
[2018-11-12] MEDS: Insulin NovoLOG Aspart Correctional Sugar Inj SQ SCH ×4 (09:36→21:52)
--- NOTE | 2018-11-12 09:55 | ECHRPT ---
Indication: SHORTNESS OF BREATH CONCLUSIONS Normal left ventricular size. Mild concentric left ventricular hypertrophy. The left ventricular systolic function is severely reduced with an estimated ejection fraction in th e range of 30-35%. There is diffuse global hypokinesis with distinct regional wall motion abnormalities. [id number]-[id number] mitral valve regurgitation. There is trace tricuspid valve regurgitation. No significant pericardial effusion. BP: / HR: Rhythm: Sinus MEASUREMENTS (Male / Female) Normal Values Technical Quality:Fair 2D ECHO LV Diastolic Diameter PLAX 5.3 cm 4.2 - 5.9 / 3.9 - 5.3 cm LV Systolic Diameter PLAX 4.6 cm IVS Diastolic Thickness 1.3 cm 0.6 - 1.0 / 0.6 - 0.9 cm LVPW Diastolic Thickness 1.4 cm 0.6 - 1.0 / 0.6 - 0.9 cm LV Relative Wall Thickness 0.5 RV Internal Dim ED PLAX 2.4 cm LVOT Diameter 2.0 cm Aortic Root Diameter 2.7 cm LA Systolic Diameter LX 3.7 cm 3.0 - 4.0 / 2.7 - 3.8 cm M-MODE AV Cusp Separation MM 2.1 cm DOPPLER AV Peak Velocity 161.0 cm/s AV Peak Gradient 10.4 mmHg AV Mean Gradient 6.0 mmHg AV Velocity Time Integral 25.6 cm LVOT Peak Velocity 95.5 cm/s LVOT Peak Gradient 3.6 mmHg LVOT Velocity Time Integral 13.2 cm AV Area Cont Eq vti 1.6 cm AV Area Cont Eq pk 1.9 cm Mitral E Point Velocity 94.8 cm/s Mitral A Point Velocity 126.0 cm/s Mitral E to A Ratio 0.8 LV E' Lateral Velocity 7.0 cm/s Mitral E to LV E' Lateral Ratio 13.5 LV E' Septal Velocity 7.0 cm/s Mitral E to LV E' Septal Ratio 13.5 PV Peak Velocity 77.5 cm/s PV Peak Gradient 2.4 mmHg FINDINGS LEFT VENTRICLE Normal left ventricular size. Mild concentric left ventricular hypertrophy. The left ventricular systolic function is severely reduced with an estimated ejection fraction in th e range of 30-35%. There is diffuse global hypokinesis with distinct regional wall motion abnormalities. Doppler parameters are consistent with impaired left ventricular relaxtion (grade 1 diastolic dysfun ction). RIGHT VENTRICLE Normal right ventricular size and systolic function. LEFT ATRIUM The left atrial size is normal. RIGHT ATRIUM The right atrial size is normal. ATRIAL SEPTUM The interatrial septum not well visualized. AORTA The aortic root and proximal ascending aorta are normal in size on limited imaging. MITRAL VALVE [id number] mitral valve regurgitation. AORTIC VALVE Trileaflet aortic valve. No aortic valve stenosis or regurgitation. TRICUSPID VALVE There is trace tricuspid valve regurgitation. PULMONARY VALVE No pulmonary valve regurgitation or stenosis. VESSELS The inferior vena cava is normal in size. PERICARDIUM No significant pericardial effusion. Willi Keane MD (Electronically Signed) Final Date:12 November 2018 09:54
--- NOTE | 2018-11-12 12:22 | P.PNIM ---
Subjective Interval history: 62-year-old male admitted for chest pain shortness of breath, workup thus far has revealed that most likely this is a COPD exacerbation. This diagnosis is complicated by his homeless situation. Physical Exam Vital signs: Last Vital Signs Temp 97.9 F 11/12/18 07:58 Pulse 87 11/12/18 07:58 Resp 17 11/12/18 07:58 BP 118/66 11/12/18 07:58 Pulse Ox 94 L 11/12/18 07:58 Intake & Output 11/10/18 11/11/18 11/12/18 11/13/18 06:59 06:59 06:59 06:59 Intake Total 250 / 250 Output Total / 4 800 / 800 Balance 246 / 246 -800 / -800 Weight 68.039 kg 68.039 kg Narrative: GENERAL: This is a well-nourished, well-developed patient, in no apparent distress. HEENT:not pale,anicteric,acyanotic, nasal canula in situ. NECK:JVD+ CARDIOVASCULAR: Regular rate and rhythm without murmurs, gallops, or rubs. RESPIRATORY: Scattered wheezes and rhonchi bilaterally GASTROINTESTINAL: Abdomen soft, non-tender, nondistended. Normal active bowel sounds MUSCULOSKELETAL: Extremities without clubbing, cyanosis. 2+ pedal edema to mid legs. NEURO: Alert & Oriented x4 to person, place, time, situation. Moves all ext x4 Results Labs CBC & Chem 7: 11/12/18 06:50 11/11/18 04:15 Assessment and Plan Plan 62 yo m with h/o DM type 2 HTN, Hyperlipidemia presenting with shortness of breath. COPD exacerbation, dyspnea Alternatively congestive versus ischemic heart failure Patient had leg swelling for 2 days prior to arrival and BNP was elevated initially 2D echocardiogram pending Continue Lasix IV twice daily Cardiac diet Chest pain May be secondary to COPD, possibly secondary to CHF, possible ischemia Troponins remain negative, but EKG showed RBBB and T wave change in inferior lateral leads Cardiology consulted Tobacco abuse Patient counseled to quit smoking Nicotine patch provided overnight Type 2 diabetes Accu-Cheks with sliding scale insulin coverage Diabetic diet Hypertension Continue daily lisinopril Low-sodium diet Hyperlipidemia, hypertriglyceridemia Continue gemfibrozil 600 mg twice daily DVT prophylaxis Heparin Progress Note: Quality VTE Deep Vein Thrombosis/Pulmonary Embolism Present on Admission: No
[2018-11-13] MEDS ORDERED: Regadenoson Inj 0.4 MG/5 ML Syringe IV.PUSH ONE (00:51)
--- NOTE | 2018-11-13 02:21 | MB ---
cc: Bennie Nicholson DO DATE: 11/12/2018 REASON FOR CONSULTATION: Shortness of breath, chest pain. HISTORY OF PRESENT ILLNESS: Kee Guillen is a 62-year-old male who presented to [facility] due to shortness of breath. He states that he started experiencing sudden onset of shortness of breath and he tried to lie down, but it got worse. He was noticing that he had a dry cough. During this time when he was lying down, he started having pain, which was in the center of his chest and felt like he could not get a full breath. He has also noticed some wheezing when lying down. When he sits up, he feels that his breathing is somewhat improved, but had difficulty catching his breath. As his symptoms were not improving after albuterol inhaler, he called EMS. He was started on breathing treatments and this improved his overall shortness of breath. It was felt that he had a COPD exacerbation, but during his workup, he had an EKG done, which showed some ST-T wave changes and I was asked to see him. He has also noticed some leg swelling over the past few days. An echocardiogram was done and he was found to have an ejection fraction of 30-35% with no previous echocardiogram done before. It seemed that he is currently hemodynamically stable without chest pain or shortness of breath. PAST MEDICAL HISTORY: 1. Pneumonia. 2. Diabetes. 3. Hypertension. 4. Hyperlipidemia. PAST SURGICAL HISTORY: Denies. ALLERGIES: PENICILLIN. MEDICATIONS: 1. Lisinopril 10 mg daily. 2. Metformin 1500 mg every night and 1000 mg during the day. 3. Aspirin 81 mg daily. 4. Glipizide 5 mg as needed. FAMILY HISTORY: Denies sudden cardiac within the family. SOCIAL HISTORY: The patient smoked 1 pack a day for greater than 40 years. He occasionally drinks alcohol. He occasionally uses marijuana with his last use probably 4 months ago. REVIEW OF SYSTEMS: Fourteen systems were reviewed including osteopathic. Pertinent positives and negatives above, otherwise negative. PHYSICAL EXAMINATION: VITAL SIGNS: Temperature 98.0, heart rate 97, blood pressure 137/72, respirations 16, pulse oximetry 97% on room air. GENERAL: The patient appears well, in no acute distress. Alert, awake and oriented x3. HEENT: Extraocular muscles intact. Mucous membranes moist. NECK: Supple. No JVD at 45 degrees. No carotid bruits heard bilaterally. Carotid upstroke is brisk in nature. HEART: Regular rate and rhythm. Positive first and second sounds with no noted murmurs, gallops or rubs. LUNGS: Decreased breath sounds with mild expiratory wheezes. ABDOMEN: Soft, nontender, nondistended. No organomegaly noted. EXTREMITIES: Trace edema bilaterally. NEUROLOGIC: No focal deficits. SKIN: Warm, dry and intact. OSTEOPATHIC: No kyphoscoliosis, lordosis or paraspinal tender points. LABORATORY DATA: Hemoglobin 10.4, hematocrit 31.1, platelets 320. Potassium 4.0, BUN 9, creatinine 0.78. Troponin negative x3. Electrocardiogram (11/11/2018 at 10:27): Sinus rhythm, right bundle branch block, possible age undetermined inferior DE, nonspecific ST-T wave changes laterally. IMPRESSION: 1. Atypical chest pain. 2. Shortness of breath. 3. Chronic obstructive pulmonary disease exacerbation. 4. Acute systolic heart failure. 5. New cardiomyopathy. 6. Diabetes. 7. Hypertension. 8. Hyperlipidemia. RECOMMENDATIONS: 1. Mr. Guillen presented with mostly shortness of breath, which may be a combination of chronic obstructive pulmonary disease exacerbation as well as what appears to be new onset heart failure, although he has never been worked up before and may be chronic in nature. 2. His chest pain is more than likely due to an elevated LVEDP due to his heart failure. He seems to only get the chest pain when he lies flat causing him to be more short of breath. 3. He has undergone an echocardiogram, which shows an ejection fraction of 30-35%, which may be new or old as he has never had an echocardiogram done before. 4. EKG suggests possible inferior myocardial infarction as well as some nonspecific ST-T wave changes, which may be ischemic in nature. 5. Troponins have been negative so far during his stay. 6. We will have him undergo a pharmacologic nuclear stress test. This may show areas of infarction, which could make his cardiomyopathy ischemic in nature. 7. If significant ischemia is noted, then we will plan on cardiac catheterization. 8. For his cardiomyopathy, he should continue on lisinopril and we will plan on adding carvedilol. 9. He has never been diagnosed with chronic obstructive pulmonary disease, although with his significant wheezing most likely has some level of this. This will be worked up by the primary team. 10. Further recommendations will be made based on the hospital course. Thank you for allowing me to see Kee Guillen. If there are any questions, please do not hesitate to call. Bennie Nicholson DO VGP/sv , 12:50 AM , 01:03 AM
[2018-11-13 03:55] LABS: Hemoglobin 11.2 gm/dL (13.0-17.0); Mean Corpuscular HGB Conc 32.9 % (32.0-36.0); Mean Corpuscular Hemoglobin 25.6 pg (27.0-34.0); Mean Corpuscular Volume 77.9 fL (80.0-100.0); Mean Platelet Volume 7.6 fL (7.0-11.0); Platelet Count 340 th/mm3 (150-450); Red Blood Count 4.36 mil/mm3 (4.50-5.90); Red Cell Distribution Width 16.6 % (11.6-17.2); White Blood Count 6.6 th/mm3 (4.0-11.0)
[2018-11-13] MEDS: Insulin NovoLOG Aspart Correctional Sugar Inj SQ SCH ×4 (08:39→21:26)
[2018-11-13] MEDS: Lisinopril 10 MG Tablet PO SCH (08:40)
[2018-11-13] MEDS: Heparin - SQ 10,000 UNITS/ML Vial SQ SCH ×2 (08:41→20:10)
--- NOTE | 2018-11-13 10:32 | P.PNIM ---
Subjective Interval history: The patient was resting comfortably in bed. He said that he was hungry. He said that the last time he had shortness of breath was the day before yesterday. He said he is currently homeless and is worried about his metformin, blood pressure medication amongst other home medications. At this time he has no acute complaints. Physical Exam Vital signs: Last Vital Signs Temp 97.9 F 11/13/18 08:00 Pulse 80 11/13/18 08:00 Resp 18 11/13/18 08:00 BP 122/60 11/13/18 08:00 Pulse Ox 96 11/13/18 08:00 Intake & Output 11/11/18 11/12/18 11/13/18 11/14/18 06:59 06:59 06:59 06:59 Intake Total 250 / 250 900 / 900 Output Total 4 800 / 800 Balance 246 / 246 100 / 100 Weight 68.039 kg 68.039 kg Narrative: GENERAL: This is a well-nourished, well-developed patient, in no apparent distress. HEENT: not pale,anicteric,acyanotic. NECK: Supple. CARDIOVASCULAR: Regular rate and rhythm without murmurs, gallops, or rubs. RESPIRATORY: Scattered wheezes bilaterally GASTROINTESTINAL: Abdomen soft, non-tender, nondistended. Normal active bowel sounds MUSCULOSKELETAL: Extremities without clubbing, cyanosis. No lower extremity edema. NEURO: Alert & Oriented x4 to person, place, time, situation. Moves all ext x4 Results Labs CBC & Chem 7: 11/13/18 03:06 11/11/18 04:15 Assessment and Plan Plan 62 yo m with h/o DM type 2 HTN, Hyperlipidemia presenting with shortness of breath. COPD exacerbation, dyspnea Improving. -Incentive spirometry. -continue nebs and oxygen as needed. -walk test prior to discharge. Acute systolic CHF exacerbation Patient had leg swelling for 2 days prior to arrival and BNP was elevated initially. 2D echocardiogram with EF 30-35%. Cardiology consult appreciated. -Continue Lasix, switch to PO. -Cardiac diet. -on ASA, ACEi and Coreg. Chest pain May be secondary to COPD, possibly secondary to CHF, possible ischemia. Troponins remain negative, but EKG showed RBBB and T wave change in inferior lateral leads. Stress test negative. -Cardiology following. Tobacco abuse -Patient counseled to quit smoking. -Nicotine patch provided overnight. Type 2 diabetes Accu-Cheks with sliding scale insulin coverage Diabetic diet Hypertension Continue daily lisinopril Low-sodium diet Homeless credit collections manager assistance appreciated. -will need help with home meds upon discharge. DVT prophylaxis Heparin Progress Note: Quality VTE Deep Vein Thrombosis/Pulmonary Embolism Present on Admission: No
[2018-11-13] MEDS: Senna/Docusate Sodium 8.6/50 MG Tablet PO SCH ×2 (10:47→20:11)
--- NOTE | 2018-11-13 12:02 | NM ---
EXAM DATE: 11/13/2018 11:55 AM EST AGE/SEX: 62 years / Male INDICATIONS:Abnormal EKG. Angina Chest pain. CLINICAL DATA: This is the patient's initial encounter. Patient reports that signs and symptoms have been present for 2 days and indicates a pain score of 1/10. MEDICAL/SURGICAL HISTORY: Diabetes mellitus type II. Hypertension. None. COMPARISON: . DOSE: 8.8 mCi Tc 99m Myoview at rest 25.8 mCi [id number] at stress 0.4 mg Lexiscan STRESS SYMPTOMS: Headache. EJECTION FRACTION: 40 % TECHNIQUE: The patient underwent pharmacologic stress with infusion of prescribed dose. Continuous ECG tracing was monitored during stress. Gated SPECT imaging was performed after stress and conventi onal SPECT imaging was performed at rest. The examination was performed on a SPECT/CT scanner, both attenuation and non-corrected datasets were reviewed. FINDINGS: Distribution: The maximum perfused segment at stress is in the anterolateral wall. Perfusion Study: The pattern of perfusion at stress demonstrates absent perfusion to posterior basa l and inferior wall which is fixed during rest. The anteroseptal wall appears perfuse normally, howev er part of the lateral wall also demonstrates diminished perfusion without any significant ischemia. Gated Study: There is mild global hypokinesis. The ejection fraction is calculated at 40%. RISK CATEGORY: Low (<1% Annual Mortality Rate) CONCLUSION: 1. 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 Electronically signed by: Carmen Samaniego MD Board Certified Radiologist 11/13/2018 12:01 PM EST
[2018-11-13] MEDS ORDERED: Insulin Detemir Inj 1,000 UNIT/10 ML Vial SQ SCH (21:00)
--- NOTE | 2018-11-13 22:56 | P.PNCA ---
Subjective Interval history: No events overnight Sitting up and eating with no complaints Medications and Allergies Active Medications: Active Medications Acetaminophen (Tylenol) 650 mg PO Q4H PRN PRN Reason: Temp > 100.4 Hydrocodone Bitart/Acetaminophen (Lott 5/325) 1 tab PO Q6H PRN PRN Reason: Acute Pain Last Admin: 11/13/18 17:15 Dose: 1 tab Al Hydroxide/Mg Hydroxide (Milk Of Magnesia Liq) 30 ml PO Q12H PRN PRN Reason: Mild Constipation Albuterol (Albuterol Neb (Prn)) 2.5 mg NEB ONCE PRN PRN Reason: SOB/WHEEZING Last Admin: 11/13/18 01:28 Dose: 2.5 mg Albuterol (Duoneb Neb (Prn)) 1 ampul NEB ONCE PRN PRN Reason: SHORTNESS OF BREATH/WHEEZING Stop: 11/16/18 00:50 Albuterol (Duoneb Neb ([place])) 1 ampul NEB Q6HR WHILE AWAKE NEB [facility] Last Admin: 11/13/18 20:34 Dose: 1 ampul Aspirin (Ecotrin) 81 mg PO DAILY [facility] Last Admin: 11/13/18 08:40 Dose: 81 mg Bisacodyl (Dulcolax Supp) 10 mg RECTAL DAILY PRN PRN Reason: SEVERE CONSITIPATION Carvedilol (Coreg) 3.125 mg PO BID [facility] Last Admin: 11/13/18 21:26 Dose: 3.125 mg Dextrose (D50w Vial) 50 ml IV.PUSH UNSCH PRN PRN Reason: PER HYPOGLYCEMIA PROTOCOL Furosemide (Lasix) 40 mg PO DAILY [facility] Glucagon (Glucagon Inj) 1 mg OTHER PRN PRN PRN Reason: for Hypoglycemia Protocol Heparin Sodium (Porcine) (Heparin Inj) 5,000 units SQ Q12H [facility] Last Admin: 11/13/18 20:10 Dose: 5,000 units Insulin Aspart (Novolog Insulin Correctional Sugar Inj) 0 unit SQ ACHS [facility]; Protocol Last Admin: 11/13/18 21:26 Dose: 7 unit Insulin Detemir (Levemir Inj) 10 unit SQ HS [facility] Last Admin: 11/13/18 21:26 Dose: 10 unit Lactulose (Lactulose Liq) 30 ml PO DAILY PRN PRN Reason: SEVERE CONSITIPATION Lisinopril (Prinivil) 10 mg PO DAILY [facility] Last Admin: 11/13/18 08:40 Dose: 10 mg Nicotine (Habitrol 21 Mg Patch.24 Hr) 1 patch T-DERMAL DAILY [facility] Last Admin: 11/13/18 08:39 Dose: 1 patch Ondansetron HCl (Zofran Inj) 4 mg IV.PUSH Q6H PRN PRN Reason: NAUSEA OR VOMITING Senna/Docusate Sodium (Gris-Colace) 1 tab PO BID [facility] Last Admin: 11/13/18 20:11 Dose: 1 tab Sennosides (Senokot) 17.2 mg PO Q12H PRN PRN Reason: Moderate Constipation Sodium Chloride (Ns Flush) 2 ml IV.FLUSH UNSCH PRN PRN Reason: FLUSH AFTER USING IV ACCESS Sodium Chloride (Ns Flush) 2 ml IV.FLUSH BID [facility] Last Admin: 11/13/18 20:11 Dose: 2 ml Sodium Chloride (Ns Flush) 2 ml IV.FLUSH PRN PRN PRN Reason: FLUSH AFTER USING IV ACCESS Sodium Chloride (Ns Flush) 2 ml IV.FLUSH BID [facility] Last Admin: 11/13/18 20:11 Dose: 2 ml Sodium Chloride (Ns Flush) 2 ml IV.FLUSH PRN PRN PRN Reason: FLUSH AFTER USING IV ACCESS Allergies Allergy/AdvReac Type Severity Reaction Status Date / Time penicillin G Allergy Severe Anaphylaxis Verified 11/11/18 07:42 Home Medications Medication Instructions Recorded Confirmed Type aspirin 81 mg PO DAILY 11/11/18 11/11/18 History glipizide 5 mg PO PRN 11/11/18 11/11/18 History lisinopril 10 mg PO DAILY 11/11/18 11/11/18 History metformin 1,000 mg PO AC 11/11/18 11/11/18 History metformin 1,500 mg PO HS 11/11/18 11/11/18 History Physical Exam Vital signs: Vital Signs 11/12/18 23:47 11/13/18 01:33 11/13/18 04:46 Temperature 98.4 F 98.0 F Pulse Rate 97 H 87 90 Respiratory Rate 18 16 16 Blood Pressure 143/79 H 109/65 Pulse Oximetry 96 11/13/18 08:00 11/13/18 12:00 11/13/18 14:42 Temperature 97.9 F 96.8 F L Pulse Rate 77 85 101 H Respiratory Rate 18 18 15 Blood Pressure 122/60 139/73 Pulse Oximetry 96 99 11/13/18 16:00 11/13/18 20:00 11/13/18 20:35 Temperature 97.0 F L 97.8 F Pulse Rate 94 H 91 H 96 H Respiratory Rate 18 16 15 Blood Pressure 138/66 123/59 L Pulse Oximetry 95 93 L Intake & Output 11/13/18 11/13/18 11/14/18 06:59 18:59 06:59 Intake Total 1150 / 1150 Balance 1150 / 1150 Intake: IV 250 / 250 Oral 900 / 900 Other: # Voids 1,400 3 Date of Last Bowel Movement 11/13/18 Narrative: GENERAL: This is a well-nourished, well-developed patient, in no apparent distress. HEENT: not pale,anicteric,acyanotic. NECK: Supple. CARDIOVASCULAR: Regular rate and rhythm without murmurs, gallops, or rubs. RESPIRATORY: Scattered wheezes bilaterally GASTROINTESTINAL: Abdomen soft, non-tender, nondistended. Normal active bowel sounds MUSCULOSKELETAL: Extremities without clubbing, cyanosis. No lower extremity edema. NEURO: Alert & Oriented x4 to person, place, time, situation. Moves all ext x4 Results 11/13/18 03:06 11/11/18 04:15 Coagulation 11/12/18 11/12/18 Range/Units 02:05 08:35 APTT 47.5 H D 47.2 H (23.4-31.7) sec CBC 11/12/18 11/13/18 Range/Units 06:50 03:06 WBC 10.3 6.6 (4.0-11.0) th/mm3 RBC 4.00 L 4.36 L (4.50-5.90) mil/mm3 Hgb 10.4 L 11.2 L (13.0-17.0) gm/dL Hct 31.1 L 34.0 L (39.0-51.0) % Plt Count 320 340 (150-450) th/mm3 Intake and Output 11/13/18 11/13/18 11/13/18 06:59 14:59 22:59 Other: # Voids 3 Date of Last Bowel Movement 11/13/18 - Imaging and Cardiology Imaging: Impressions Myocardial Perfusion Scan Nuc Med 11/13/18 00:00 CONCLUSION: 1. 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 Assessment and Plan - Assessment (1) SOB (shortness of breath) Code(s): R06.02 - Shortness of breath Status: Acute (2) Acute systolic (congestive) heart failure Code(s): I50.21 - Acute systolic (congestive) heart failure Status: Acute (3) Ischemic cardiomyopathy Code(s): I25.5 - Ischemic cardiomyopathy Status: Acute (4) COPD (chronic obstructive pulmonary disease) Code(s): J44.9 - Chronic obstructive pulmonary disease, unspecified Status: Acute (5) Chest pain Code(s): R07.9 - Chest pain, unspecified Status: Acute - Plan 1. Atypical chest pain. More likely due to elevated LVEDP with laying down Nuclear stress test showing inferior infarction which agrees with his EKG 2. Shortness of breath. Combination of COPD and acute systolic CHF 3. Chronic obstructive pulmonary disease exacerbation. Per primary team 4. Acute systolic heart failure. EF 30-35% Ischemic cardiomyopathy with previous inferior infarction by nuclear stress test Coreg/Lisinopril Lasix 5. New cardiomyopathy. Coreg/Lisinopril 6. Diabetes. 7. Hypertension. 8. Hyperlipidemia. 9. No further cardiovascular work up Appears relatively compensated Cardiovascularly stable for discharge (5) Chest pain Qualifiers: Chest pain type: unspecified Qualified Code(s): R07.9 - Chest pain, unspecified
[2018-11-14] MEDS: Heparin - SQ 10,000 UNITS/ML Vial SQ SCH (06:46)
[2018-11-14 07:25] LABS: Hematocrit 35.1 % (39.0-51.0); Hemoglobin 11.4 gm/dL (13.0-17.0); Mean Corpuscular HGB Conc 32.6 % (32.0-36.0); Mean Corpuscular Hemoglobin 25.4 pg (27.0-34.0); Mean Platelet Volume 7.5 fL (7.0-11.0); Platelet Count 341 th/mm3 (150-450); Red Cell Distribution Width 16.4 % (11.6-17.2)
[2018-11-14 07:54] LABS: Calcium 8.7 mg/dL (8.5-10.1); Carbon Dioxide 28.5 meq/L (21.0-32.0); Magnesium 2.3 mg/dL (1.5-2.5); Potassium 4.2 meq/L (3.5-5.1)
[2018-11-14] MEDS: Lisinopril 10 MG Tablet PO SCH (08:58)
[2018-11-14] MEDS: Senna/Docusate Sodium 8.6/50 MG Tablet PO SCH (08:58)
[2018-11-14] MEDS ORDERED: Furosemide 40 MG Tablet PO SCH (09:00)
[2018-11-14] MEDS: Insulin NovoLOG Aspart Correctional Sugar Inj SQ SCH (09:09)
--- NOTE | 2018-11-14 09:37 | P.DS ---
DS: Providers Date of admission: 11/11/18 05:54 Primary care physician: No Primary Care Physician Consults: 11/12/18 12:28 Consult to Cardiology Routine Consulting Provider: Bennie Nicholson Does the patient have a Labor Conciliator who follows them?: No Preferred Architectural Draftsman:: Assembly And Packing Supervisor Physician Reason for Consultation: 62M who presented with dyspnea and chest pain. Troponin's remained within normal limits, but there are EKG changes suspicious for inferiolateral ME. Please evaluate EKG. ECHO results pending. Notified:: Office Spoke with:: Brynn Date Notified:: 11/12/18 Time Notified:: 12:36 Ordering Provider: BRIAN Anticipated date of discharge: 11/14/18 Brief History from admission: 62 yo M with h/o DM type 2, HTN, Hyperlipidemia, who presented to the ER with shortness of breath. Patient is homeless currently , [place] she started experiencing sudden onset shortness of breath. He tried to lay down but it got worse on laying down , and he would cough a lot,and had lower retrosternal pressure which was non radiating about 7/10. No associated diaphoresis or palpitations. Had some wheezing as well on laying down. He sat up again and breathing somewhat improved , but he still felt like he could not catch his breath. He had an albuterol inhaler which he had got from his friend sometime ago, he inhaled 4 times but it did not help. Patient is not know to have COPD.The symptoms lasted about 20 minutes. Since he was not improving, he called EMS. On arrival EMS put patient on Oxygen, and started breathing treatments, and was brought to ER. On arrival to ER, BP 148/74, HR 110/min, was reported to be tachypneic w RR 30, SATS 96%. Patient received Lasix 40mg, ASA 162mg. Patient reports improvement in shortness of breath after treatment in ER. Troponin negative --0.03,0.02. Initial ECG 02:25am-sinus tach 106, RBBB,occasional PACs, subsequent ECG 07: 23am--NSR 93/min,RBBB w twi inferolateral leads. Patient started on heparin drip at 7:30amdue to changes noted in his second ECG. When I saw patient he reported his shortness of breath/wheezing and the lower chest pressure had significantly improved. ROS--patient notice leg swelling 2 days prior to admission, initially at level of ankle but increased to about mid leg. He has h/o exertional shortness of breath when going upstairs or an incline for the last 1-2 years. Occasional exertional chest pain. Numbness in both his feet. The rest of ROS is negative except as stated above. Smokes 1ppd for more than 40 years, occasionally drinks alcohol. Occasionally uses marijuana, last use probably 4 months ago. DS: Diagnosis Discharge Diagnosis (1) SOB (shortness of breath): Status: Acute (2) Acute systolic (congestive) heart failure: Status: Acute (3) Ischemic cardiomyopathy: Status: Acute (4) COPD (chronic obstructive pulmonary disease): Status: Acute (5) Chest pain: Status: Acute DS: Summary COPD exacerbation Improved with incentive spirometry, nebs and oxygen as needed. He was breathing well on room air at the time of discharge. Acute systolic CHF exacerbation Patient had leg swelling for 2 days prior to arrival and BNP was elevated. 2D echocardiogram with EF 30-35%. Cardiology was consulted. We continued IV Lasix and switched to PO. The pt will continue ASA, ACEi and Coreg and will follow up with cardiology as an outpt. Case management was consulted to assist with medications at the time of discharge. Chest pain Troponins were negative, but EKG showed RBBB and T wave changes in the inferior lateral leads. Stress test was negative. He was cleared for discharge by cardiology. Tobacco abuse Patient counseled to quit smoking and a nicotine patch was ordered. Type 2 diabetes The pt was placed on Accu-Cheks with sliding scale insulin coverage. He will resume his home metformin regimen. Time Spent with Patient Total time spent providing and/or coordinating discharge services: Less than 30 minutes Quality: VTE Deep Vein Thrombosis/Pulmonary Embolism Present on Admission: No Exam Narrative Exam Narrative: GENERAL: This is a well-nourished, well-developed patient, in no apparent distress. HEENT: not pale,anicteric,acyanotic. NECK: Supple. CARDIOVASCULAR: Regular rate and rhythm without murmurs, gallops, or rubs. RESPIRATORY: Scattered wheezes bilaterally GASTROINTESTINAL: Abdomen soft, non-tender, nondistended. Normal active bowel sounds MUSCULOSKELETAL: Extremities without clubbing, cyanosis. No lower extremity edema. NEURO: Alert & Oriented x4 to person, place, time, situation. Moves all ext x4 Results Labs on day of discharge: Labs from last 24 hours 11/14/18 11/14/18 11/14/18 09:03 06:47 06:47 WBC 7.0 RBC 4.50 Hgb 11.4 L Hct 35.1 L MCV 78.0 L MCH 25.4 L MCHC 32.6 RDW 16.4 Plt Count 341 MPV 7.5 Sodium 135 L Potassium 4.2 Chloride 101 Carbon Dioxide 28.5 Anion Gap 6 BUN 23 H Creatinine 0.88 Estimated GFR 88 L POC Glucose 158 H Random Glucose 139 H Calcium 8.7 Magnesium 2.3 11/13/18 11/13/18 11/13/18 20:55 17:10 13:05 WBC RBC Hgb Hct MCV MCH MCHC RDW Plt Count MPV Sodium Potassium Chloride Carbon Dioxide Anion Gap BUN Creatinine Estimated GFR POC Glucose 256 H 162 H 300 H Random Glucose Calcium Magnesium Impressions ITS Impressions Chest X-Ray 11/11/18 03:58 CONCLUSION: No acute cardiopulmonary disease. Myocardial Perfusion Scan Nuc Med 11/13/18 00:00 CONCLUSION: 1. 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 Discharge Plan Discharge Disposition Patient Disposition: Discharge Home Discharge Condition Condition: Stable Discharge Order Discharge Orders: Discharge Order (Routine); Ordered 11/14/18 Ordered By: Edin Tolentino Discharge Details Anticipated Discharge Date: 11/14/18 Discharge Comment: OK to discharge once patient has ability to fill scripts Physicians Team Primary Care Provider: Primary Care Azalia Hector Attending Provider: Edin Tolentino Other Providers: Bennie Nicholson Rxs /Orders / Referrals /Forms Prescriptions: New furosemide 40 mg Tablet 40 mg PO DAILY Qty: 30 RF: 0 carvedilol [Coreg] 3.125 mg Tablet 3.125 mg PO BID Qty: 60 RF: 0 Continue glipizide 5 mg PO PRN RF: 0 metformin 1,000 mg Tablet 1,000 mg PO AC Qty: 30 RF: 0 aspirin 81 mg PO DAILY Qty: 30 RF: 0 lisinopril 10 mg PO DAILY Qty: 30 RF: 0 Discontinued metformin 1,000 mg Tablet 1,500 mg PO HS RF: 0 Referrals: Primary Care Azalia Hector [Primary Care Provider] - See Instructions (One week) Bennie Nicholson, [Physician] - See Instructions (2 weeks) Status ED Status: Left Department
== END 2018-11-14 12:00 | disposition home or self-care (01) ==
LOC: NEPE 02:20 → NEDA 02:20 → NEPHCDU 09:22
PROVIDERS: ADMIT Hospitalist; ATTEND Hospitalist
DX: Z79.82 Long term (current) use of aspirin; J44.0 Chronic obstructive pulmonary disease with (acute) lower respiratory infection; E78.1 Pure hyperglyceridemia; E11.9 Type 2 diabetes mellitus without complications; I11.0 Hypertensive heart disease with heart failure; Z59.0 Homelessness; Z79.84 Long term (current) use of oral hypoglycemic drugs; J18.9 Pneumonia, unspecified organism; F17.210 Nicotine dependence, cigarettes, uncomplicated; I25.5 Ischemic cardiomyopathy; E78.5 Hyperlipidemia, unspecified; I50.23 Acute on chronic systolic (congestive) heart failure; J44.1 Chronic obstructive pulmonary disease with (acute) exacerbation; I45.10 Unspecified right bundle-branch block
CPT/HCPCS: 71010; 71045; 78452; 80048; 80053; 80061; 82272; 82550; 82948; 82962; 83036; 83520; 83735; 83880; 84443; 84484; 85025; 85027; 85379; 85610; 85730; 90774; 90784; 93005; 93017; 93306; 94150; 94640; 94664; 94665; 96365; 96366; 96372; 96374; 96375; 96376; 99291; A9502; C8952; G0378; J1644; J1815; J1940; J2785